=== PATIENT | female | born 2000 | race Caucasian/White ===

== ENCOUNTER → 2024-11-29 | Outpatient (CLI) | payer BC, SELFPAY ==
--- NOTE | 2024-11-29 07:45 | XR_ITS ---
Examination: Breast ultrasound, unilateral, left Date and time of exam: November 29, 2024, 0907 hours INDICATIONS: Palpable lumps in the retroareolar region left breast noticed beginning 1 month ago. Technique: Real-time hopper scale ultrasonographic imaging performed left breast including all 4 quadrants as well as nipple retroareolar and axillary region. Findings: 1:00 cyst 5 x 5 mm No solid nodules IMPRESSION: BI-RADS Category 1: Negative study
== END | disposition home or self-care (01) ==
LOC: CDIM 08:43
PROVIDERS: PCP Internal Medicine; Referring Provider Internal Medicine; Visit Provider Internal Medicine
DX: N63.20 Unspecified lump in the left breast, unspecified quadrant (principal)
CPT/HCPCS: 76641